=== PATIENT | male | born 1990 | race American Indian/Alaskan Native ===

== ENCOUNTER 2016-10-28 15:38 | Emergency (ER) | payer OTHER ==
[2016-10-28 16:29] VITALS: BP 142/75
--- NOTE | 2016-10-28 18:23 | Emergency Department Report ---
- General Chief Complaint: Upper Respiratory Infection Stated Complaint: SICK/FLU SYMPTOMS Time Seen by Provider: 10/28/16 17:40 Source: patient Mode of arrival: Ambulatory Limitations: No Limitations - History of Present Illness Initial Comments: Patient comes in the ER today with complaints of sinus congestion, sore throat, productive cough, right ear pain for the past 2 days. Patient states that he has been coughing up some greenish yellow phlegm. Patient denies any chest pain or past history of lung problems. Patient states that his ear started bothering him more yesterday and that it feels like he is plugged up in his ear. Patient also has had 3 little spots under his skin that he wants checked out. Patient has a small lesion to right anterior thigh as well as bilateral posterior lower lateral back. Patient states that the spots have been there for a year or longer. Denies any pain to the area. No redness, no drainage, no change in condition. Patient just wants them checked out. MD Complaint: cough, rhinorrhea, nasal congestion, sinus pain -: days(s) (2) - Related Data Previous Rx's Medication Instructions Recorded Last Taken Type Levofloxacin [Levaquin TAB] 500 mg PO QDAY #10 tablet 10/28/16 Unknown Rx predniSONE [Deltasone] 40 mg PO QDAY 10 Days 10/28/16 Unknown Rx Allergies Allergy/AdvReac Type Severity Reaction Status Date / Time No Known Allergies Allergy Unverified 10/28/16 16:24 ED Review of Systems ROS: Stated complaint: SICK/FLU SYMPTOMS Other details as noted in HPI Constitutional: denies: chills, fever Eyes: denies: eye pain, eye discharge, vision change ENT: ear pain, throat pain, congestion. denies: dental pain, epistaxis Respiratory: cough. denies: shortness of breath, SOB with exertion, wheezing Cardiovascular: denies: chest pain, palpitations Endocrine: no symptoms reported Gastrointestinal: denies: abdominal pain, nausea, vomiting, diarrhea Genitourinary: denies: urgency, dysuria Musculoskeletal: denies: back pain, joint swelling, arthralgia Skin: lesions. denies: rash Neurological: denies: headache, weakness, paresthesias Psychiatric: denies: anxiety, depression Hematological/Lymphatic: denies: easy bleeding, easy bruising ED Past Medical Hx - Past Medical History Previous Medical History?: No - Surgical History Past Surgical History?: No - Social History Smoking Status: Current Every Day Smoker Substance Use Type: None - Medications Home Medications: Home Medications Medication Instructions Recorded Confirmed Last Taken Type Levofloxacin [Levaquin TAB] 500 mg PO QDAY #10 tablet 10/28/16 Unknown Rx predniSONE [Deltasone] 40 mg PO QDAY 10 Days 10/28/16 Unknown Rx ED Physical Exam - General Limitations: No Limitations General appearance: alert, in no apparent distress - Head Head exam: Present: atraumatic, normocephalic - Eye Eye exam: Present: normal appearance, PERRL, EOMI. Absent: conjunctival injection, periorbital swelling, periorbital tenderness Pupils: Present: normal accommodation - ENT ENT exam: Present: mucous membranes moist, normal external ear exam, other ( posterior pharynx erythematous with posterior pharynx drainage, bilateral nasal mucosa redness and swelling of turbinates. Tenderness noted to bilateral maxillary sinuses on percussion.). Absent: TM's normal bilaterally (right TM erythematous, bulging, loss of landmarks.) - Neck Neck exam: Present: normal inspection, full ROM. Absent: tenderness, meningismus, lymphadenopathy - Respiratory Respiratory exam: Present: normal lung sounds bilaterally, rhonchi. Absent: respiratory distress, wheezes, rales, chest wall tenderness, accessory muscle use, decreased breath sounds - Cardiovascular Cardiovascular Exam: Present: regular rate, normal rhythm, normal heart sounds. Absent: systolic murmur, diastolic murmur, rubs, gallop - GI/Abdominal GI/Abdominal exam: Present: soft, normal bowel sounds. Absent: distended, tenderness - Rectal Rectal exam: Present: deferred - Extremities Exam Extremities exam: Present: normal inspection - Back Exam Back exam: Present: normal inspection - Neurological Exam Neurological exam: Present: alert, oriented X3, CN II-XII intact, normal gait, reflexes normal. Absent: motor sensory deficit - Psychiatric Psychiatric exam: Present: normal affect, normal mood - Skin Skin exam: Present: warm, dry, intact, normal color, other (subcutaneous 0.5-1 cm nodular lesions noted to the right anterior upper thigh, right lateral lower lumbar, left lateral lower lumbar. Each nodule is nonerythematous, nontender, nonindurated.). Absent: rash ED Course Vital Signs 10/28/16 16:24 Temperature 98.9 F Pulse Rate 97 H Respiratory 18 Rate Blood Pressure 142/75 O2 Sat by Pulse 99 Oximetry ED Medical Decision Making - Medical Decision Making Patient is nontoxic and hemodynamically stable. I believe patient have a bacterial cause to upper respiratory infection today as patient does have obvious acute otitis media noted. Patient states that he is very money conscious and he would like to limit the testing as much as possible. I offered chest x-ray to evaluate extent of infection and chest area and patient declines chest x-ray at this time. Since patient is nonseptic appearing, has good oxygen saturation, young, healthy and without any comorbid problems, we will start patient on antibiotics appropriately and patient is encouraged to return to the ER if symptoms fail to resolve or worsen. I reassured patient on my clinical suspicions for causes to his skin lesions. I informed patient that I believe they are either small lipomas versus sebaceous cysts. I also informed patient that the only way for anybody to definitively identify what they are is to be excised from his tissue. Patient does not want any procedure done like that at this time. Patient does work at [employer] and I have encouraged patient not to work for the next 3 days. Patient is in agreement with treatment plan patient is stable for discharge. Critical care attestation.: If time is entered above; I have spent that time in minutes in the direct care of this critically ill patient, excluding procedure time. ED Disposition Clinical Impression: Right acute otitis media, Sinusitis, Pharyngitis, Bronchitis Disposition: - TO HOME OR SELFCARE Is pt being admited?: No Does the pt Need Aspirin: No Condition: Good Instructions: Otitis Media (ED), Acute Bronchitis (ED), Lipoma (ED) Prescriptions: Levofloxacin [Levaquin TAB] 500 mg PO QDAY #10 tablet predniSONE [Deltasone] 40 mg PO QDAY 10 Days Referrals: PRIMARY CARE, [Primary Care Provider] - 3-5 Days [facility] [Outside] - 3-5 Days Forms: Work/School Release Form(ED) Time of Disposition: 18:44
== END 2016-10-28 18:55 | disposition home or self-care (01) ==
LOC: ED 15:38
DX: H66.91 Otitis media, unspecified, right ear (principal); J32.9 Chronic sinusitis, unspecified; J40 Bronchitis, not specified as acute or chronic; J02.9 Acute pharyngitis, unspecified; F17.200 Nicotine dependence, unspecified, uncomplicated
CPT/HCPCS: 99282